=== PATIENT | male | born 1990 | race Caucasian/White ===

== ENCOUNTER 2018-05-01 21:00 | Emergency (ER) | payer BC, OTHER ==
[2018-05-01] MEDS ORDERED: Sodium Chloride 0.9% 1000 ML 1,000 ML ONE ×2 (21:14→22:07)
[2018-05-01] MEDS ORDERED: Zofran 4 MG/2 ML VIAL IV ONE (21:16)
[2018-05-01] MEDS ORDERED: Sodium Chloride 0.9% 1000 ML 1,000 ML IV STA ×2 (21:16→22:04)
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
[2018-05-01] MEDS ORDERED: Zofran 4 MG/2 ML VIAL ONE (21:32)
[2018-05-01 21:55] LABS: BASOPHIL % 0.2 % (0.0-0.4); Basophil (Absolute #) 0.02 (0-0.4); Eosinophil % 0.8 % (0.00-5.0); Eosinophil (Absolute #) 0.07 (0-0.5); Granulocyte Absolute (ANC) 6.44 (1.4-6.9); Granulocytes % 69.9 % (36.0-66.0); Hematocrit 42.8 % (42-50); Hemoglobin 15.3 gm/dl (12.5-18.0); Lymphocyte (Absolute #) 1.81 (1.0-4.6); Lymphocytes % 19.7 % (24.0-44.0); Mean Cell Volume 83.6 fl (78-100); Mean Corpuscular Hemoglobin 29.9 pg (26-32); Mean Corpuscular Hgb Concent. 35.7 g/dl (32-36); Mean Platelet Volume 11.8 fl (6-9.5); Monocyte (Absolute #) 0.87 (0.0-1.3); Monocytes % 9.4 % (0.0-12.0); Platelet Count 182 K/mm3 (150-450); Red Blood Count 5.12 M/mm3 (4.1-5.6); Red Cell Distribution Width 12.4 % (11.5-14.0); White Blood Count 9.2 K/mm3 (4.0-10.5)
[2018-05-01 21:58] LABS: Appearance CLEAR (CLEAR); Bilirubin NEGATIVE (NEGATIVE); Blood NEGATIVE Ery/ul (0-5); Glucose 1000 mg/dL (NEGATIVE); Ketones NEGATIVE (NEGATIVE); Leukocyte Esterase NEGATIVE (NEGATIVE); Nitrite NEGATIVE (NEGATIVE); Protein,Urine Dip TRACE (Negative); Specific Gravity 1.015 (1.005-1.025); Urobilinogen NORMAL mg/dL (0-1); WBC 0-2 /HPF (0-5)
[2018-05-01 21:59] LABS: Epithelial Cells RARE /HPF (FEW)
[2018-05-01 22:11] LABS: Lactic Acid 1.9 (0.4-2.0)
[2018-05-01 22:12] LABS: ANION GAP 15.7 MEQ/L (5-15); BLOOD UREA NITROGEN 14 mg/dL (9-20); CHLORIDE 100 mmol/L (98-107); Carbon Dioxide 24 mmol/L (22-30); Creatinine 1 1.17 mg/dL (0.66-1.25); Glucose 408 mg/dL (74-106); Potassium 4.3 mmol/L (3.5-5.1); SODIUM 136 mmol/L (137-145)
[2018-05-01 23:14] VITALS: O2SAT 98
[2018-05-01 23:32] VITALS: BP 124/75; PULSE 96
== END 2018-05-01 23:32 | disposition home or self-care (01) ==
LOC: ED 21:00
DX: E10.65 Type 1 diabetes mellitus with hyperglycemia (principal); Z79.4 Long term (current) use of insulin
CPT/HCPCS: 36000; 36415; 80048; 81000; 82962; 83605; 85025; 96360; 96361; 99284; J2405

== ENCOUNTER 2018-10-12 20:34 | Emergency (ER) | payer OTHER, MEDICAID ==
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
[2018-10-12] MEDS ORDERED: NovoLIN R SQ ONE (22:01)
[2018-10-12] MEDS ORDERED: NovoLIN R ONE (22:08)
[2018-10-12] MEDS ORDERED: Cyclobenzaprine 10 MG PO ONE (23:10)
[2018-10-12] MEDS ORDERED: NORCO 5/325 MG PO ONE (23:11)
[2018-10-12] MEDS ORDERED: NORCO 5/325 MG ONE (23:20)
[2018-10-12] MEDS ORDERED: Cyclobenzaprine 10 MG ONE (23:20)
[2018-10-12 23:34] VITALS: BP 93/47; PULSE 52; O2SAT 98
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
== END 2018-10-12 23:31 | disposition home or self-care (01) ==
LOC: ED 20:34
DX: E10.65 Type 1 diabetes mellitus with hyperglycemia (principal); M54.2 Cervicalgia; S16.1XXA Strain of muscle, fascia and tendon at neck level, initial encounter; V89.2XXA Person injured in unspecified motor-vehicle accident, traffic, initial encounter
CPT/HCPCS: 72040; 82947; 96372; 99284; L0120; A9270-GY

== ENCOUNTER 2020-04-19 07:07 | Emergency (ER) | payer BC, MEDICAID ==
[2020-04-19] MEDS ORDERED: Sodium Chloride 0.9% 1000 ML 1,000 ML IV STA (07:21)
--- NOTE | 2020-04-19 07:21 | ERPHSYRPT ---
- History of Present Illness Time Seen by Provider: 04/19/20 07:21 Source: patient Exam Limitations: no limitations Physician History: Is a 29-year-old insulin-dependent diabetic with history of hypertension and presents with achiness and his upper thighs. Patient states he has had this in the past and his blood sugars were really high. Patient did not take his blood sugar level at home. He assumed it is very high. Patient denies shortness of breath he denies chest pain he denies abdominal pain he has had no nausea or vomiting or diarrhea. Patient has had no fevers and no chills. Patient has no muscle aches or pains. He has no cough. Upon arrival to the emergency department his Accu-Chek was 205. Timing/Duration: today Severity: mild Modifying Factors: Improves With: nothing Associated Symptoms: other (Muscle aches in his upper anterior thighs bilater ally) Allergies/Adverse Reactions: No Known Drug Allergies Allergy (Verified 04/19/20 07:28) Home Medications: Insulin Detemir [Levemir] 20 units SQ DAILY 07/27/15 [History] Insulin Aspart [NovoLOG Insulin] 5 units SQ TID 10/12/18 [History] lisinopriL [Lisinopril] 2.5 mg PO DAILY 04/19/20 [History] Hx Tetanus, Diphtheria Vaccination/Date Given: No Hx Influenza Vaccination/Date Given: No Hx Pneumococcal Vaccination/Date Given: No Travel Risk - International Travel Have you traveled outside of the country in past 3 weeks: No - Coronavirus Screening Are you exhibiting any of the following symptoms?: No Close contact with a COVID-19 positive Pt in past 14-21 Days: No - Review of Systems Constitutional: No Symptoms Eyes: No Symptoms Ears, Nose, & Throat: No Symptoms Respiratory: No Symptoms Cardiac: No Symptoms Abdominal/Gastrointestinal: No Symptoms Genitourinary Symptoms: No Symptoms Musculoskeletal: Myalgias (Specifically anterior thighs bilaterally) Skin: No Symptoms Neurological: No Symptoms Psychological: No Symptoms Endocrine: No Symptoms Hematologic/Lymphatic: No Symptoms Immunological/Allergic: No Symptoms All Other Systems: Reviewed and Negative - Past Medical History Pertinent Past Medical History: Yes Neurological History: No Pertinent History ENT History: No Pertinent History Cardiac History: No Pertinent History Respiratory History: No Pertinent History Endocrine Medical History: Diabetes Type I Musculoskeletal History: No Pertinent History GI Medical History: No Pertinent History History: No Pertinent History Psycho-Social History: No Pertinent History Male Reproductive Disorders: No Pertinent History - Past Surgical History Past Surgical History: No Neuro Surgical History: No Pertinent History Cardiac: No Pertinent History Respiratory: No Pertinent History Gastrointestinal: No Pertinent History Genitourinary: No Pertinent History Musculoskeletal: No Pertinent History Male Surgical History: No Pertinent History - Social History Smoking Status: Never smoker Exposure to second hand smoke: Yes Drug Use: none Patient Lives Alone: No Significant Family History: no pertinent family hx - Nursing Vital Signs Nursing Vital Signs: Initial Vital Signs Temperature 98.3 F 04/19/20 07:15 Pulse Rate 67 04/19/20 07:15 Blood Pressure 143/82 04/19/20 07:15 O2 Sat by Pulse Oximetry 98 04/19/20 07:15 Pain Scale Pain Intensity 2 - Physical Exam General Appearance: no apparent distress, alert, anxiety Eye Exam: PERRL/EOMI, eyes nml inspection Ears, Nose, Throat Exam: normal ENT inspection, moist mucous membranes Neck Exam: normal inspection, non-tender, supple, full range of motion Respiratory Exam: normal breath sounds, lungs clear, airway intact, No chest tenderness, No respiratory distress Cardiovascular Exam: regular rate/rhythm, normal heart sounds, normal peripheral pulses Gastrointestinal/Abdomen Exam: soft, normal bowel sounds, No tenderness Rectal Exam: not done Back Exam: normal inspection, normal range of motion, CVA tenderness, No vertebral tenderness Extremity Exam: normal inspection, normal range of motion, pelvis stable Neurologic Exam: alert, oriented x 3, cooperative, aircraft mechanic II-XII nml as tested, normal mood/affect, nml cerebellar function, nml station & gait, sensation nml Skin Exam: normal color, warm, dry Lymphatic Exam: No adenopathy SpO2 Interpretation: normal O2 Delivery: Room Air - Course Nursing assessment & vital signs reviewed: Yes Ordered Tests: Active Orders 24 hr Category Date Time Status IV Insertion STAT Care 04/19/20 07:21 Active Pulse Oximetry (ED) STAT Care 04/19/20 07:21 Active CBC W DIFF Stat Lab 04/19/20 07:40 Completed CMP Stat Lab 04/19/20 07:40 Completed Lactic Acid Urgent Lab 04/19/20 07:51 Completed UA W/RFX UR CULTURE Stat Lab 04/19/20 07:40 Completed Medication Summary Discontinued Medications Generic Name Dose Route Start Last Admin Trade Name Paula PRN Reason Stop Dose Admin Sodium Chloride 1,000 mls @ 999 mls/hr 04/19/20 07:21 04/19/20 08:45 Sodium Chloride 0.9% 1000 Ml IV 04/19/20 08:21 Infused .Q1H1M STA Infusion Sodium Chloride Confirm 04/19/20 07:37 Sodium Chloride 0.9% 1000 Ml Administered 04/19/20 07:38 Dose 1,000 mls @ ud .ROUTE .K-MED ONE Lab/Rad Data: Laboratory Result Diagrams 04/19/20 07:40 04/19/20 07:40 Laboratory Results 04/19/20 04/19/20 04/19/20 Range/Units 07:51 07:40 07:40 WBC (4.0-10.5) K/mm3 RBC (4.1-5.6) M/mm3 Hgb (12.5-18.0) gm/dl Hct (42-50) % MCV (78-100) fl MCH (26-32) pg MCHC (32-36) g/dl RDW (11.5-14.0) % Plt Count (150-450) K/mm3 MPV (7.5-11.0) fl Gran % (36.0-66.0) % Eos # (Auto) (0-0.5) Absolute Lymphs (auto) (1.0-4.6) Absolute Monos (auto) (0.0-1.3) Lymphocytes % (24.0-44.0) % Monocytes % (0.0-12.0) % Eosinophils % (0.00-5.0) % Basophils % (0.0-0.4) % Absolute Granulocytes (1.4-6.9) Basophils # (0-0.4) Sodium 136 L (137-145) mmol/L Potassium 3.6 (3.5-5.1) mmol/L Chloride 99 (98-107) mmol/L Carbon Dioxide 29 (22-30) mmol/L Anion Gap 11.5 (5-15) MEQ/L BUN 15 (9-20) mg/dL Creatinine 1.00 (0.66-1.25) mg/dL Estimated GFR > 60.0 ML/MIN Glucose 268 H (74-106) mg/dL Lactic Acid 1.3 (0.4-2.0) Calcium 9.1 (8.4-10.2) mg/dL Total Bilirubin 0.50 (0.2-1.3) mg/dL AST 23 (17-59) U/L ALT 20 (0-50) U/L Alkaline Phosphatase 136 H (38-126) U/L Serum Total Protein 7.5 (6.3-8.2) g/dL Albumin 4.1 (3.5-5.0) g/dL Urine Color YELLOW (YELLOW) Urine Appearance CLEAR (CLEAR) Urine pH 5.0 (5-6) Ur Specific [place] 1.026 (1.005-1.025) Urine Protein 100 (Negative) Urine Ketones NEGATIVE (NEGATIVE) Urine Blood NEGATIVE (0-5) Deep/ul Urine Nitrite NEGATIVE (NEGATIVE) Urine Bilirubin NEGATIVE (NEGATIVE) Urine Urobilinogen 2 (0-1) mg/dL Ur Leukocyte Esterase NEGATIVE (NEGATIVE) Urine WBC (Auto) 3-5 (0-5) /HPF Urine RBC (Auto) 0-2 (0-2) /HPF U Epithel Cells (Auto) NONE (FEW) /HPF Urine Bacteria (Auto) NONE (NEGATIVE) /HPF Urine Mucus (Auto) SLIGHT (NEGATIVE) /HPF Urine Culture Reflexed NO (NO) Urine Glucose >=500 (NEGATIVE) mg/dL 04/19/20 Range/Units 07:40 WBC 10.6 H (4.0-10.5) K/mm3 RBC 4.97 (4.1-5.6) M/mm3 Hgb 14.7 (12.5-18.0) gm/dl Hct 42.2 (42-50) % MCV 84.9 (78-100) fl MCH 29.6 (26-32) pg MCHC 34.8 (32-36) g/dl RDW 12.3 (11.5-14.0) % Plt Count 196 (150-450) K/mm3 MPV 11.5 H (7.5-11.0) fl Gran % 68.0 H (36.0-66.0) % Eos # (Auto) 0.18 (0-0.5) Absolute Lymphs (auto) 2.23 (1.0-4.6) Absolute Monos (auto) 0.96 (0.0-1.3) Lymphocytes % 21.0 L (24.0-44.0) % Monocytes % 9.0 (0.0-12.0) % Eosinophils % 1.7 (0.00-5.0) % Basophils % 0.3 (0.0-0.4) % Absolute Granulocytes 7.23 H (1.4-6.9) Basophils # 0.03 (0-0.4) Sodium (137-145) mmol/L Potassium (3.5-5.1) mmol/L Chloride (98-107) mmol/L Carbon Dioxide (22-30) mmol/L Anion Gap (5-15) MEQ/L BUN (9-20) mg/dL Creatinine (0.66-1.25) mg/dL Estimated GFR ML/MIN Glucose (74-106) mg/dL Lactic Acid (0.4-2.0) Calcium (8.4-10.2) mg/dL Total Bilirubin (0.2-1.3) mg/dL AST (17-59) U/L ALT (0-50) U/L Alkaline Phosphatase (38-126) U/L Serum Total Protein (6.3-8.2) g/dL Albumin (3.5-5.0) g/dL Urine Color (YELLOW) Urine Appearance (CLEAR) Urine pH (5-6) Ur Specific [place] (1.005-1.025) Urine Protein (Negative) Urine Ketones (NEGATIVE) Urine Blood (0-5) Deep/ul Urine Nitrite (NEGATIVE) Urine Bilirubin (NEGATIVE) Urine Urobilinogen (0-1) mg/dL Ur Leukocyte Esterase (NEGATIVE) Urine WBC (Auto) (0-5) /HPF Urine RBC (Auto) (0-2) /HPF U Epithel Cells (Auto) (FEW) /HPF Urine Bacteria (Auto) (NEGATIVE) /HPF Urine Mucus (Auto) (NEGATIVE) /HPF Urine Culture Reflexed (NO) Urine Glucose (NEGATIVE) mg/dL - Progress Progress: improved Counseled pt/family regarding: lab results, diagnosis, need for follow-up - Departure Departure Disposition: Home Clinical Impression: Hyperglycemia Condition: Stable Critical Care Time: No Referrals: DOCTOR,NO FAMILY [NON-STAFF PHY W/O PRIVILEGES] - Additional Instructions: Drink plenty of fluids. Take your medications as prescribed. Follow-up with your primary prescribing physician for further management. Monitor your blood sugar closely.
[2020-04-19] MEDS ORDERED: Sodium Chloride 0.9% 1000 ML 1,000 ML ONE (07:37)
[2020-04-19 07:42] VITALS: O2SAT 100
[2020-04-19 07:49] LABS: Appearance CLEAR (CLEAR); Bilirubin NEGATIVE (NEGATIVE); Blood NEGATIVE Ery/ul (0-5); Glucose >=500 mg/dL (NEGATIVE); Ketones NEGATIVE (NEGATIVE); Leukocyte Esterase NEGATIVE (NEGATIVE); Mucus SLIGHT /HPF (NEGATIVE); Nitrite NEGATIVE (NEGATIVE); Protein,Urine Dip 100 (Negative); RBC 0-2 /HPF (0-2); Specific Gravity 1.026 (1.005-1.025); Urobilinogen 2 mg/dL (0-1)
[2020-04-19 07:57] LABS: Absolute Neutrophil Ct (ANC) 7.23 (1.4-6.9); BASOPHIL % 0.3 % (0.0-0.4); Basophil (Absolute #) 0.03 (0-0.4); Eosinophil % 1.7 % (0.00-5.0); Eosinophil (Absolute #) 0.18 (0-0.5); Hematocrit 42.2 % (42-50); Hemoglobin 14.7 gm/dl (12.5-18.0); Lymphocyte (Absolute #) 2.23 (1.0-4.6); Mean Cell Volume 84.9 fl (78-100); Mean Corpuscular Hemoglobin 29.6 pg (26-32); Mean Corpuscular Hgb Concent. 34.8 g/dl (32-36); Mean Platelet Volume 11.5 fl (7.5-11.0); Monocyte (Absolute #) 0.96 (0.0-1.3); Platelet Count 196 K/mm3 (150-450); Red Blood Count 4.97 M/mm3 (4.1-5.6); Red Cell Distribution Width 12.3 % (11.5-14.0); White Blood Count 10.6 K/mm3 (4.0-10.5)
[2020-04-19 08:38] LABS: ALBUMIN 4.1 g/dL (3.5-5.0); ALKALINE PHOSPHATASE 136 U/L (38-126); ANION GAP 11.5 MEQ/L (5-15); BLOOD UREA NITROGEN 15 mg/dL (9-20); CHLORIDE 99 mmol/L (98-107); Calcium 9.1 mg/dL (8.4-10.2); Carbon Dioxide 29 mmol/L (22-30); EST GLOMERULAR FILTRATION RATE > 60.0 ML/MIN; Glucose 268 mg/dL (74-106); Potassium 3.6 mmol/L (3.5-5.1); SGOT/AST 23 U/L (17-59); SGPT/ALT 20 U/L (0-50); SODIUM 136 mmol/L (137-145); Total Protein 7.5 g/dL (6.3-8.2)
[2020-04-19 11:02] VITALS: BP 116/65; PULSE 47
== END 2020-04-19 11:09 | disposition home or self-care (01) ==
LOC: ED 07:07
DX: E10.65 Type 1 diabetes mellitus with hyperglycemia (principal); I10 Essential (primary) hypertension; Z79.899 Other long term (current) drug therapy
CPT/HCPCS: 36415; 80053; 81001; 83036; 83605; 85025; 94760; 96360; 99284

== ENCOUNTER 2023-10-11 13:39 | Emergency (ER) | payer BC ==
[2023-10-11 13:56] VITALS: TEMP 99.9
--- NOTE | 2023-10-11 14:02 | ERPHSYRPT ---
- History of Present Illness Time Seen by Provider: 10/11/23 14:02 Source: patient Exam Limitations: no limitations Patient Subjective Stated Complaint: Fever Triage Nursing Assessment: Patient ambulated back to ED and transferred self to bed. Patient A+O x3. Patient's skin flushed, warm and dry. Patient complains of fever, non productive cough and body aches for 3 days. Patient is Type 1 non compliant diabetic and hasn't take BS in a long time. Patient complains of body aches 02/18. Physician History: This patient is an insulin-dependent diabetic and presents with 3-day history of bodyaches, cough that is nonproductive and sore throat. He also had a fever at home as well. Patient has not had any nausea or vomiting or symptoms of diarrhea today. He does not have chest pain and he does not have shortness of b reath. Patient states that he does interact with multiple people daily at his job but he has no known definite exposures. Patient has a history of hypertension and insulin-dependent diabetes. Patient did not take any Tylenol or ibuprofen today. Timing/Duration: day(s) (3), worse Fever Severity: mild (To moderate) Associated Symptoms: cough, muscle aches (Nonproductive), sore throat, No stiff neck Allergies/Adverse Reactions: No Known Drug Allergies Allergy (Verified 10/11/23 13:50) Home Medications: Insulin Detemir [Levemir] 20 units SQ DAILY 07/27/15 [History] Insulin Aspart [NovoLOG Insulin] 5 units SQ TID 10/12/18 [History] lisinopriL [Lisinopril] 2.5 mg PO DAILY 04/19/20 [History] Hx Tetanus, Diphtheria Vaccination/Date Given: No Hx Influenza Vaccination/Date Given: No Hx Pneumococcal Vaccination/Date Given: No Immunizations Up to Date: Yes Travel Risk - International Travel Have you traveled outside of the country in past 3 weeks: No - Coronavirus Screening Are you exhibiting any of the following symptoms?: Yes Symptoms: Fever, Cough: New Onset, Headaches/Body Aches/Fatigue Close contact with a COVID-19 positive Pt in past 14-21 Days: No - Vaccine Status Have you recieved a Covid-19 vaccination: Yes All Source Intelligence: Unknown - Vaccination Dates Dates if Unknown: na - Review of Systems Constitutional: Fever Eyes: No Symptoms Ears, Nose, & Throat: Throat Pain Respiratory: Cough Cardiac: No Symptoms Abdominal/Gastrointestinal: Nausea Genitourinary Symptoms: No Symptoms Musculoskeletal: Arthralgias, Myalgias Skin: No Symptoms Neurological: No Symptoms Psychological: No Symptoms Endocrine: No Symptoms Hematologic/Lymphatic: No Symptoms Immunological/Allergic: No Symptoms All Other Systems: Reviewed and Negative - Past Medical History Pertinent Past Medical History: Yes Neurological History: No Pertinent History ENT History: No Pertinent History Cardiac History: No Pertinent History Respiratory History: No Pertinent History Endocrine Medical History: Diabetes Type I Musculoskeletal History: No Pertinent History GI Medical History: No Pertinent History History: No Pertinent History Psycho-Social History: No Pertinent History Male Reproductive Disorders: No Pertinent History - Past Surgical History Past Surgical History: No Neuro Surgical History: No Pertinent History Cardiac: No Pertinent History Respiratory: No Pertinent History Gastrointestinal: No Pertinent History Genitourinary: No Pertinent History Musculoskeletal: No Pertinent History Male Surgical History: No Pertinent History - Social History Smoking Status: Never smoker Exposure to second hand smoke: No Drug Use: none Patient Lives Alone: No Significant Family History: no pertinent family hx - Nursing Vital Signs Nursing Vital Signs: Initial Vital Signs Temperature 99.9 F 10/11/23 13:51 Pulse Rate 80 10/11/23 13:51 Respiratory Rate 16 10/11/23 13:51 Blood Pressure 152/80 10/11/23 13:51 O2 Sat by Pulse Oximetry 100 10/11/23 13:51 Pain Scale Pain Intensity 7 - Physical Exam General Appearance: mild distress, alert, anxiety Eye Exam: PERRL/EOMI, eyes nml inspection ENT Exam: normal ENT inspection Neck Exam: normal inspection, non-tender, supple, full range of motion, trachea midline Respiratory Exam: normal breath sounds, lungs clear, no accessory muscle use, No chest non-tender, No no respiratory distress, No respiratory distress Cardiovascular/Chest Exam: normal heart sounds, regular rate/rhythm Gastrointestinal/Abdominal Exam: soft, non tender, no distention, no mass, no guarding, no ecchymosis, no organomegaly, no pulsatile mass, normal bowel sounds Rectal Exam: not done Extremity Exam: non-tender, normal range of motion, normal capillary refill, no calf tenderness, no pedal edema, pelvis stable, No normal inspection Neurologic Exam: alert, oriented x 3, cooperative, 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, normal mood/affect, nml cerebellar function, nml station & gait, sensation nml Skin Exam: normal color, warm, dry Lymphatic: No adenopathy SpO2 Interpretation: normal SpO2: 100 O2 Delivery: Room Air - Course Nursing assessment & vital signs reviewed: Yes Ordered Tests: Active Orders 24 hr Category Date Time Status IV Insertion STAT Care 10/11/23 14:10 Active POCT Glucose Check STAT Care 10/11/23 13:57 Active CHEST 1 VIEW (PORTABLE) Stat Exams 10/11/23 14:02 Completed BLOOD CULTURE Stat Lab 10/11/23 15:00 Received BMP Stat Lab 10/11/23 16:15 Completed CBC W DIFF Stat Lab 10/11/23 13:50 Completed CMP Stat Lab 10/11/23 13:50 Completed Lactic Acid Stat Lab 10/11/23 14:38 Completed MONO SCREEN Stat Lab 10/11/23 13:50 Completed POCT GLUCOSE Stat Lab 10/11/23 13:54 Completed UA W/RFX UR CULTURE Stat Lab 10/11/23 14:36 Completed Medication Summary Discontinued Medications Generic Name Dose Route Start Last Admin Trade Name Paula PRN Reason Stop Dose Admin Acetaminophen 650 mg 10/11/23 14:42 10/11/23 14:52 Acetaminophen 325 Mg Tablet PO 10/11/23 14:43 650 mg STAT ONE Administration Acetaminophen Confirm 10/11/23 14:48 Acetaminophen 325 Mg Tablet Administered 10/11/23 14:49 Dose 650 mg .ROUTE .STK-MED ONE Hydromorphone HCl 0.5 mg 10/11/23 14:42 10/11/23 14:52 Hydromorphone 1 Mg/1ml Inj IV 10/11/23 14:43 0.5 mg STAT ONE Administration Hydromorphone HCl Confirm 10/11/23 14:48 Hydromorphone 1 Mg/1ml Inj Administered 10/11/23 14:49 Dose 1 mg .ROUTE .STK-MED ONE Sodium Chloride 1,000 mls @ 999 mls/hr 10/11/23 14:32 10/11/23 15:40 Sodium Chloride 0.9% 1000 Ml IV 10/11/23 15:32 Infused .Q1H1M STA Infusion Sodium Chloride Confirm 10/11/23 14:39 Sodium Chloride 0.9% 1000 Ml Administered 10/11/23 14:40 Dose 1,000 mls @ ud .ROUTE .STK-MED ONE Lactated Ringer's 1,000 mls @ 999 mls/hr 10/11/23 15:22 10/11/23 16:39 Lactated Ringers IV 10/11/23 16:22 Infused .Q1H1M ONE Infusion Lactated Ringer's Confirm 10/11/23 15:34 Lactated Ringers Administered 10/11/23 15:35 Dose 1,000 mls @ ud IV .STK-MED ONE Ibuprofen 400 mg 10/11/23 14:42 10/11/23 14:51 Ibuprofen 400 Mg Tablet PO 10/11/23 14:43 400 mg STAT ONE Administration Ibuprofen Confirm 10/11/23 14:48 Ibuprofen 400 Mg Tablet Administered 10/11/23 14:49 Dose 400 mg .ROUTE .STK-MED ONE Ondansetron HCl 4 mg 10/11/23 14:42 10/11/23 14:52 Ondansetron Hcl 4 Mg/2 Ml Vial IV 10/11/23 14:43 4 mg STAT ONE Administration Ondansetron HCl Confirm 10/11/23 14:48 Ondansetron Hcl 4 Mg/2 Ml Vial Administered 10/11/23 14:49 Dose 4 mg .ROUTE .STK-MED ONE Lab/Rad Data: Laboratory Result Diagrams 10/11/23 13:50 10/11/23 16:15 Laboratory Results 10/11/23 10/11/23 10/11/23 Range/Units 16:15 14:38 14:36 WBC (4.0-10.5) x10^3/uL RBC (4.1-5.6) x10^6/uL Hgb (12.5-18.0) g/dL Hct (42-50) % MCV (78-100) fL MCH (26-32) pg MCHC (32-36) g/dL RDW (11.5-14.0) % Plt Count (150-450) x10^3/uL MPV (7.5-11.0) fL Gran % (36.0-66.0) % Immature Gran % (Auto) (0.00-0.4) % Nucleat RBC Rel Count (0.00-0.1) % Eos # (Auto) (0-0.5) x10^3/uL Immature Gran # (Auto) (0.00-0.03) x10^3u/L Absolute Lymphs (auto) (1.0-4.6) x10^3/uL Absolute Monos (auto) (0.0-1.3) x10^3/uL Absolute Nucleated RBC (0.00-0.01) x10^3u/L Lymphocytes % (24.0-44.0) % Monocytes % (0.0-12.0) % Eosinophils % (0.00-5.0) % Basophils % (0.0-0.4) % Absolute Granulocytes (1.4-6.9) x10^3/uL Basophils # (0-0.4) x10^3/uL Sodium 130 L (137-145) mmol/L Potassium 3.7 (3.5-5.1) mmol/L Chloride 100 (98-107) mmol/L Carbon Dioxide 23 (22-30) mmol/L Anion Gap 10.4 (5-15) MEQ/L BUN 14 (9-20) mg/dL Creatinine 1.04 (0.66-1.25) mg/dL Estimated GFR 96.6 ML/MIN Glucose 227 H (74-106) mg/dL POC Glucometer (74 to 106) mg/dL Lactic Acid 1.6 (0.4-2.0) Calcium 7.7 L (8.4-10.2) mg/dL Total Bilirubin (0.2-1.3) mg/dL AST (17-59) U/L ALT (0-50) U/L Alkaline Phosphatase (38-126) U/L Serum Total Protein (6.3-8.2) g/dL Albumin (3.5-5.0) g/dL Urine Color Dark Yellow (Yellow) Urine Appearance Clear (Clear) Urine pH 5.5 (4.6-8.0) Ur Specific [place] >=1.030 A (1.005-1.030) Urine Protein 100 A (Negative) Urine Glucose (UA) >=1000 A (Negative) mg/dL Urine Ketones 80 A (Negative) Urine Blood Negative (Negative) Urine Nitrite Negative (Negative) Urine Bilirubin Negative (Negative) Urine Urobilinogen 2.0 A (0.2) mg/dL Ur Leukocyte Esterase Negative (Negative) U Hyaline Cast (Auto) 3-5 A (0-2) /LPF Urine Microscopic RBC 0-2 (0-5) /HPF Urine Microscopic WBC 3-5 (0-5) /HPF Ur Epithelial Cells Moderate A (None Seen) /HPF Urine Bacteria Rare A (None Seen) /HPF Urine Culture Reflexed NO (NO) Monoscreen (NEGATIVE) Influenza Type A Ag (NEGATIVE) Influenza Type B Ag (NEGATIVE) RSV (PCR) (NEGATIVE) SARS-CoV-2 (PCR) (NEGATIVE) Group A Strep Antibody (NEGATIVE) 10/11/23 10/11/23 10/11/23 Range/Units 14:30 14:30 13:54 WBC (4.0-10.5) x10^3/uL RBC (4.1-5.6) x10^6/uL Hgb (12.5-18.0) g/dL Hct (42-50) % MCV (78-100) fL MCH (26-32) pg MCHC (32-36) g/dL RDW (11.5-14.0) % Plt Count (150-450) x10^3/uL MPV (7.5-11.0) fL Gran % (36.0-66.0) % Immature Gran % (Auto) (0.00-0.4) % Nucleat RBC Rel Count (0.00-0.1) % Eos # (Auto) (0-0.5) x10^3/uL Immature Gran # (Auto) (0.00-0.03) x10^3u/L Absolute Lymphs (auto) (1.0-4.6) x10^3/uL Absolute Monos (auto) (0.0-1.3) x10^3/uL Absolute Nucleated RBC (0.00-0.01) x10^3u/L Lymphocytes % (24.0-44.0) % Monocytes % (0.0-12.0) % Eosinophils % (0.00-5.0) % Basophils % (0.0-0.4) % Absolute Granulocytes (1.4-6.9) x10^3/uL Basophils # (0-0.4) x10^3/uL Sodium (137-145) mmol/L Potassium (3.5-5.1) mmol/L Chloride (98-107) mmol/L Carbon Dioxide (22-30) mmol/L Anion Gap (5-15) MEQ/L BUN (9-20) mg/dL Creatinine (0.66-1.25) mg/dL Estimated GFR ML/MIN Glucose (74-106) mg/dL POC Glucometer 233 H (74 to 106) mg/dL Lactic Acid (0.4-2.0) Calcium (8.4-10.2) mg/dL Total Bilirubin (0.2-1.3) mg/dL AST (17-59) U/L ALT (0-50) U/L Alkaline Phosphatase (38-126) U/L Serum Total Protein (6.3-8.2) g/dL Albumin (3.5-5.0) g/dL Urine Color (Yellow) Urine Appearance (Clear) Urine pH (4.6-8.0) Ur Specific [place] (1.005-1.030) Urine Protein (Negative) Urine Glucose (UA) (Negative) mg/dL Urine Ketones (Negative) Urine Blood (Negative) Urine Nitrite (Negative) Urine Bilirubin (Negative) Urine Urobilinogen (0.2) mg/dL Ur Leukocyte Esterase (Negative) U Hyaline Cast (Auto) (0-2) /LPF Urine Microscopic RBC (0-5) /HPF Urine Microscopic WBC (0-5) /HPF Ur Epithelial Cells (None Seen) /HPF Urine Bacteria (None Seen) /HPF Urine Culture Reflexed (NO) Monoscreen (NEGATIVE) Influenza Type A Ag NEGATIVE (NEGATIVE) Influenza Type B Ag POSITIVE A (NEGATIVE) RSV (PCR) NEGATIVE (NEGATIVE) SARS-CoV-2 (PCR) NEGATIVE (NEGATIVE) Group A Strep Antibody NOT DETECTED (NEGATIVE) 10/11/23 10/11/23 10/11/23 Range/Units 13:50 13:50 13:50 WBC 8.9 (4.0-10.5) x10^3/uL RBC 4.96 (4.1-5.6) x10^6/uL Hgb 14.5 (12.5-18.0) g/dL Hct 42.1 (42-50) % MCV 84.9 (78-100) fL MCH 29.2 (26-32) pg MCHC 34.4 (32-36) g/dL RDW 11.4 L (11.5-14.0) % Plt Count 156 (150-450) x10^3/uL MPV 12.0 H (7.5-11.0) fL Gran % 74.6 H (36.0-66.0) % Immature Gran % (Auto) 0.1 (0.00-0.4) % Nucleat RBC Rel Count 0.0 (0.00-0.1) % Eos # (Auto) 0 (0-0.5) x10^3/uL Immature Gran # (Auto) 0.01 (0.00-0.03) x10^3u/L Absolute Lymphs (auto) 1.33 (1.0-4.6) x10^3/uL Absolute Monos (auto) 0.91 (0.0-1.3) x10^3/uL Absolute Nucleated RBC 0.00 (0.00-0.01) x10^3u/L Lymphocytes % 14.9 L (24.0-44.0) % Monocytes % 10.2 (0.0-12.0) % Eosinophils % 0.0 (0.00-5.0) % Basophils % 0.2 (0.0-0.4) % Absolute Granulocytes 6.64 (1.4-6.9) x10^3/uL Basophils # 0.02 (0-0.4) x10^3/uL Sodium 132 L (137-145) mmol/L Potassium 3.6 (3.5-5.1) mmol/L Chloride 95 L (98-107) mmol/L Carbon Dioxide 24 (22-30) mmol/L Anion Gap 15.9 H (5-15) MEQ/L BUN 14 (9-20) mg/dL Creatinine 1.18 (0.66-1.25) mg/dL Estimated GFR 83.0 ML/MIN Glucose 226 H (74-106) mg/dL POC Glucometer (74 to 106) mg/dL Lactic Acid (0.4-2.0) Calcium 8.8 (8.4-10.2) mg/dL Total Bilirubin 0.70 (0.2-1.3) mg/dL AST 39 (17-59) U/L ALT 44 (0-50) U/L Alkaline Phosphatase 160 H (38-126) U/L Serum Total Protein 7.4 (6.3-8.2) g/dL Albumin 4.2 (3.5-5.0) g/dL Urine Color (Yellow) Urine Appearance (Clear) Urine pH (4.6-8.0) Ur Specific [place] (1.005-1.030) Urine Protein (Negative) Urine Glucose (UA) (Negative) mg/dL Urine Ketones (Negative) Urine Blood (Negative) Urine Nitrite (Negative) Urine Bilirubin (Negative) Urine Urobilinogen (0.2) mg/dL Ur Leukocyte Esterase (Negative) U Hyaline Cast (Auto) (0-2) /LPF Urine Microscopic RBC (0-5) /HPF Urine Microscopic WBC (0-5) /HPF Ur Epithelial Cells (None Seen) /HPF Urine Bacteria (None Seen) /HPF Urine Culture Reflexed (NO) Monoscreen NEGATIVE (NEGATIVE) Influenza Type A Ag (NEGATIVE) Influenza Type B Ag (NEGATIVE) RSV (PCR) (NEGATIVE) SARS-CoV-2 (PCR) (NEGATIVE) Group A Strep Antibody (NEGATIVE) - Progress Progress: improved, re-examined Progress Note: 10/11/23 14:41 This patient's medical issue is 1 of moderate complexity. The level of com plexity in the workup performed is based on review of the patient's past medical history, review of the patient's medication list, review the patient drug allergy list, history present illness and physical findings on examination. The workup in this patient includes placement of an intravenous line, infusion of normal saline solution, infusion of Dilaudid and Zofran, CBC, CMP, viral swabs, group A strep swab, monotest, chest x-ray and urinalysis. We will also provide the patient with both Tylenol and ibuprofen for fever control. 10/11/23 15:46 I interpreted the patient's laboratory data results. Patient does have influenza B. He does have moderate ketones in his urine and a blood sugar of 233 on the Accu-Chek. He has a normal CO2 and is anion gap is only 15.6. Patient has not been having any vomiting or diarrhea symptoms. He has been having fevers. We will provide him with an additional liter of fluid which she will change to lactated Ringer's. I will not treat his influenza B infection with Tamiflu as this is the beginning a day for of his symptoms. We will reevaluate him both clinically and from the laboratory data standpoint after he finishes the second liter of fluid. 10/11/23 16:23 Patient states he is feeling much better. We are awaiting the results of the BMP. Patient has requested that I send a prescription to his pharmacy for his lisinopril. I will remotely send a prescription for 10 days. He will need to follow-up with his primary prescribing provider after that time. 10/11/23 16:55 Repeat BMP shows improvement in the anion gap. Patient is tolerating liquids well. Patient wants to go home. I think it is reasonable at this point for him to do so. Counseled pt/family regarding: lab results, diagnosis, rad results Medical Desision Making - Independent Historian Additional History obtained from: Spouse - Diagnostic Testing Diagnostic test were ordered, analyzed, and reviewed by me: Yes Radiological Interpretation: Reviewed by me, Teleradiologist Report - Risk of complications The pt has a mod risk of morbidity or mortality based on: Need for prescription drug management - Departure Departure Disposition: Home Clinical Impression: Fever, Influenza B, Hyperglycemia Condition: Stable Critical Care Time: No Referrals: BREEZY AUSTIN [Primary Care Provider] - Follow up/PCP as directed Additional Instructions: Drink plenty of clear liquids before advancing diet. Take all your medications as prescribed. Monitor your blood glucose levels closely. Call your prescribing provider on 10/14/2023, to make arrangements for follow-up appointment the next 3 days. Prescriptions: Hydrocodone/Acetaminophen [Hydrocodone-Acetamn 7.5-325/15] 10 ml PO Q8H PRN #120 ml MDD 30 ml PRN Reason: Cough Lisinopril 20 mg [Zestril 20 MG] 20 mg PO DAILY #10 tablet
--- NOTE | 2023-10-11 14:27 | XRAY ---
Indication: Fever and cough. Comparison: None Portable chest demonstrates normal heart, lungs, and bony thorax.
[2023-10-11] MEDS: Sodium Chloride 0.9% 1000 ML 1,000 ML IV STA (14:39)
[2023-10-11] MEDS ORDERED: Sodium Chloride 0.9% 1000 ML 1,000 ML ONE (14:39)
[2023-10-11 14:44] LABS: Absolute Neutrophil Ct (ANC) 6.64 x10^3/uL (1.4-6.9); BASOPHIL % 0.2 % (0.0-0.4); Basophil (Absolute #) 0.02 x10^3/uL (0-0.4); Eosinophil (Absolute #) 0 x10^3/uL (0-0.5); Hematocrit 42.1 % (42-50); Hemoglobin 14.5 g/dL (12.5-18.0); IMMATURE GRAN # 0.01 x10^3u/L (0.00-0.03); IMMATURE GRAN % 0.1 % (0.00-0.4); Lymphocyte (Absolute #) 1.33 x10^3/uL (1.0-4.6); Lymphocytes % 14.9 % (24.0-44.0); Mean Cell Volume 84.9 fL (78-100); Mean Corpuscular Hemoglobin 29.2 pg (26-32); Mean Corpuscular Hgb Concent. 34.4 g/dL (32-36); Monocyte (Absolute #) 0.91 x10^3/uL (0.0-1.3); Monocytes % 10.2 % (0.0-12.0); Neutrophil % 74.6 % (36.0-66.0); Platelet Count 156 x10^3/uL (150-450); Red Blood Count 4.96 x10^6/uL (4.1-5.6); Red Cell Distribution Width 11.4 % (11.5-14.0); White Blood Count 8.9 x10^3/uL (4.0-10.5)
[2023-10-11] MEDS ORDERED: MOTRIN 400 MG ONE (14:48)
[2023-10-11] MEDS ORDERED: Zofran 4 MG/2 ML VIAL ONE (14:48)
[2023-10-11] MEDS ORDERED: Hydromorphone 1 mg/ml Injection ONE (14:48)
[2023-10-11] MEDS ORDERED: TYLENOL 325 MG ONE (14:48)
[2023-10-11 14:51] LABS: Appearance Clear (Clear); Bacteria Rare /HPF (None Seen); Bilirubin Negative (Negative); Blood Negative (Negative); Epithelial Cells Moderate /HPF (None Seen); Glucose, Urine >=1000 mg/dL (Negative); Ketones 80 (Negative); Leukocyte Esterase Negative (Negative); Nitrite Negative (Negative); Ph 5.5 (4.6-8.0); Protein,Urine Dip 100 (Negative); RBC 0-2 /HPF (0-5); Specific Gravity >=1.030 (1.005-1.030)
[2023-10-11] MEDS: MOTRIN 400 MG PO ONE (14:51)
[2023-10-11] MEDS: Zofran 4 MG/2 ML VIAL IV ONE (14:52)
[2023-10-11] MEDS: Hydromorphone 1 mg/ml Injection IV ONE (14:52)
[2023-10-11] MEDS: TYLENOL 325 MG PO ONE (14:52)
[2023-10-11 14:53] LABS: ALBUMIN 4.2 g/dL (3.5-5.0); ANION GAP 15.9 MEQ/L (5-15); BILIRUBIN,TOTAL 0.7 mg/dL (0.2-1.3); Calcium 8.8 mg/dL (8.4-10.2); Creatinine 1 1.18 mg/dL (0.66-1.25); Potassium 3.6 mmol/L (3.5-5.1); Total Protein 7.4 g/dL (6.3-8.2)
[2023-10-11 15:08] LABS: INFLUENZA A NEGATIVE (NEGATIVE); RESPIRATORY SYNCTIAL VIRUS NEGATIVE (NEGATIVE); SARS-CoV-2 Xpert Express NEGATIVE (NEGATIVE)
[2023-10-11 15:11] LABS: INFLUENZA B POSITIVE (NEGATIVE)
[2023-10-11 15:16] LABS: ADD URINE CULTURE? NO (NO)
[2023-10-11] MEDS ORDERED: Lactated Ringers 1,000 ML IV ONE (15:34)
[2023-10-11] MEDS: Lactated Ringers 1,000 ML IV ONE (15:37)
[2023-10-11 16:30] VITALS: O2SAT 100
[2023-10-11 16:35] LABS: ANION GAP 10.4 MEQ/L (5-15); Calcium 7.7 mg/dL (8.4-10.2); Creatinine 1 1.04 mg/dL (0.66-1.25); EST GLOMERULAR FILTRATION RATE 96.6 ML/MIN; Potassium 3.7 mmol/L (3.5-5.1)
[2023-10-11 16:56] VITALS: BP 121/72; PULSE 88; RESP 16
== END 2023-10-11 17:00 | disposition home or self-care (01) ==
LOC: ED 13:39
DX: J10.1 Influenza due to other identified influenza virus with other respiratory manifestations (principal); R50.9 Fever, unspecified; E10.65 Type 1 diabetes mellitus with hyperglycemia; M79.10 Myalgia, unspecified site; R05.1 Acute cough; I10 Essential (primary) hypertension; Z79.891 Long term (current) use of opiate analgesic; Z79.899 Other long term (current) drug therapy
CPT/HCPCS: 0241U; 36000; 36415; 71045; 80048; 80053; 81001; 82947; 83605; 85025; 86308; 87040; 87651; 96360; 96374; 96375; 99284; J1170; J2405; A9270-GY